=== PATIENT | male | born 2000 | race Caucasian/White ===

== ENCOUNTER 2018-06-23 19:03 | Emergency (ER) | payer OTHER ==
--- NOTE | 2018-06-23 19:19 | EDPHY ---
H & P Smoking Status: Never smoked Time Seen by Provider: 06/23/18 19:18 HPI/ROS: CHIEF COMPLAINT: Abdominal pain HISTORY OF PRESENT ILLNESS: Patient is a 18-year-old male with no significant past medical history here with abdominal pain addition sharp and in the lower abdomen and radiating to the back bilaterally. States the pain started around 2 or 230 this afternoon associated with nausea and vomiting. Last bowel movement was yesterday afternoon. He typically does have 2 bowel movements a days this is unusual for him. States he thinks he is constipated. Denies any sick contacts. He does smoke marijuana daily. Denies any fever. REVIEW OF SYSTEMS: Constitutional: No fever, no chills. Eyes: No discharge. ENT: No sore throat. Cardiovascular: No chest pain, no palpitations. Respiratory: No cough, no shortness of breath. Gastrointestinal: + abdominal pain, + vomiting. Genitourinary: No hematuria. Musculoskeletal: + back pain. Skin: No rashes. Neurological: No headache. (Nasim Farnsworth) Physical Exam: General Appearance: Alert and no distress. Eyes: Pupils equal and round no injection. Respiratory: Chest is nontender, lungs are clear to auscultation. Cardiac: regular rate and rhythm. Gastrointestinal: Abdomen is soft and tender to left lower quadrant. No right lower quadrant or right upper quadrant tenderness. No peritoneal signs. no masses, bowel sounds normal. Musculoskeletal: Neck is supple and nontender. Extremities have full range of motion and are nontender. Skin: No rashes or lesions. (Nasim Farnsworth) Constitutional: Initial Vital Signs Temperature (C) 36.8 C 06/23/18 19:14 Heart Rate 62 06/23/18 19:14 Respiratory Rate 20 06/23/18 19:14 Blood Pressure 126/58 H 06/23/18 19:14 O2 Sat (%) 100 06/23/18 19:14 O2 Delivery Mode Room Air Allergies/Adverse Reactions: No Known Allergies Allergy (Unverified 06/23/18 19:14) Home Medications: Medication Instructions Recorded Adderall 10 MG (*) 06/23/18 Hydrocodone/Acetaminophen [[place] 1 each PO Q6 #8 tablet 06/23/18 5/325 (*)] Tamsulosin HCl [Flomax 0.4 MG (*)] 0.4 mg PO DAILY #10 cap 06/23/18 Medical Decision Making ED Course/Re-evaluation: Patient here with approximately 12 hr of worsening right-sided abdominal pain. Labs showed mild leukocytosis with a white count of 13 but otherwise were unremarkable with no evidence of acute renal failure or biliary disease. CT scan was ordered to evaluate for possible appendicitis and revealed 3 mm ureteral stone with mild hydronephrosis. Urinalysis shows no evidence of infection patient is afebrile nontoxic or septic appearing. He was referred to Urology for further treatment and evaluation. Patient his pain was well controlled with Toradol and morphine. (Nasim Farnsworth) - Data Points Laboratory Results: Laboratory Results 06/23/18 19:25 06/23/18 19:25 Medications Given: Discontinued Medications Famotidine (Pepcid) 20 mg IVP EDNOW ONE Stop: 06/23/18 19:26 Last Admin: 06/23/18 19:33 Dose: 20 mg Sodium Chloride (Ns) 1,000 mls @ 0 mls/hr IV EDNOW ONE; Wide Open PRN Reason: Protocol Stop: 06/23/18 19:26 Last Admin: 06/23/18 19:29 Dose: 1,000 mls Sodium Chloride (Ns) 1,000 mls @ 0 mls/hr IV EDNOW ONE; Wide Open PRN Reason: Protocol Stop: 06/23/18 20:09 Last Admin: 06/23/18 20:40 Dose: 1,000 mls Ketorolac Tromethamine (Toradol) 15 mg IVP EDNOW ONE Stop: 06/23/18 19:26 Last Admin: 06/23/18 19:33 Dose: 15 mg Morphine Sulfate (Morphine) 2 mg IVP ONCE ONE Stop: 06/23/18 20:55 Last Admin: 06/23/18 21:10 Dose: 2 mg Ondansetron HCl (Zofran Odt) 4 mg PO ONCE ONE Stop: 06/23/18 19:26 Last Admin: 06/23/18 19:43 Dose: Not Given Ondansetron HCl (Zofran) 4 mg IVP EDNOW ONE Stop: 06/23/18 19:29 Last Admin: 06/23/18 19:28 Dose: 4 mg Ondansetron HCl (Zofran Odt) 4 mg PO EDNOW ONE Stop: 06/23/18 21:12 Last Admin: 06/23/18 21:11 Dose: 4 mg Tamsulosin HCl (Flomax) 0.4 mg PO EDNOW ONE Stop: 06/23/18 21:06 Last Admin: 06/23/18 21:10 Dose: 0.4 mg Departure - Departure Disposition: Home, Routine, Self-Care Clinical Impression: Nephrolithiasis Condition: Good Instructions: Kidney Stones (ED) Additional Instructions: Follow-up with Urology in the next 5-7 days. Take Flomax as directed. Additionally take 600 mg of Motrin as needed for pain. If he have persistent pain unresolved by Motrin you may take [place]. Referrals: RUBY MENARD [Primary Care Provider] - As per Instructions Raulito Pérez MD [Medical Doctor] - As per Instructions Prescriptions: Hydrocodone/Acetaminophen [[place] 5/325 (*)] 1 each PO Q6 #8 tablet Tamsulosin HCl [Flomax 0.4 MG (*)] 0.4 mg PO DAILY #10 cap
[2018-06-23] MEDS ORDERED: ONDANSETRON 4 MG/2 ML VIAL ONE (19:24)
[2018-06-23] MEDS ORDERED: KETOROLAC 15 MG/1 ML SDV IVP ONE (19:25)
[2018-06-23] MEDS ORDERED: FAMOTIDINE 20 MG/2 ML SDV IVP ONE (19:25)
[2018-06-23] MEDS ORDERED: ONDANSETRON DISINTEGRATING 4 MG TAB PO ONE ×2 (19:25→21:11)
[2018-06-23] MEDS ORDERED: NS 1,000 ML IV ONE ×2 (19:25→20:08)
[2018-06-23] MEDS ORDERED: ONDANSETRON 4 MG/2 ML VIAL IVP ONE (19:28)
[2018-06-23 19:41] LABS: PLATELET COUNT 209 10^3/uL (150-400)
[2018-06-23] MEDS ORDERED: IOPAMIDOL (ISOVUE-300) 100 ML BTL ONE (20:24)
[2018-06-23] MEDS ORDERED: TAMSULOSIN HCL 0.4 MG CAP PO ONE (21:05)
[2018-06-23 22:35] VITALS: BP 120/49
== END 2018-06-23 22:13 | disposition home or self-care (01) ==
DX: N20.1 Calculus of ureter (principal); E86.9 Volume depletion, unspecified
CPT/HCPCS: 96374; J1885; J2270; J2405; Q9967